=== PATIENT | female | born 1950 | race Caucasian/White ===

== ENCOUNTER 2020-10-24 08:03 | Day surgery (SDC) | payer MEDICARE, MEDICAID ==
[~2020-10-24] VITALS: Ht 167.6 cm; Wt 46.8 kg
[2020-10-24 08:29] LABS: ANION GAP 17.8 mmol/L (8-16); CALCIUM 8.8 mg/dL (8.5-10.1); CARBON DIOXIDE 20.2 mmol/L (21.0-32.0); CREATININE - SERUM 4.5 mg/dL (0.6-1.3)
[2020-10-24 08:41] LABS: BASOPHILS 0.5 % (0-2); EOSINOPHILS 5.7 % (0-7); HEMATOCRIT 30.9 % (36.0-48.0); HEMOGLOBIN 9.7 g/dL (12-16); IMMATURE GRANULOCYTES 0.2 % (0-5); LYMPHOCYTE ABS# 1.76 10x3/uL (1.18-3.74); LYMPHOCYTES 26.5 % (15-50); MCH 28.1 pg (26.0-34.0); MCHC 31.4 g/dL (31.0-37.0); MCV 89.6 fL (80.0-100.0); MEAN PLATELET VOLUME 9.5 fL (7.4-10.4); MONOCYTES 6.3 % (2-11); NEUTROPHIL ABS# 4.05 10x3/uL (1.56-6.13); NEUTROPHILS 60.8 % (40-80); PLATELET COUNT 164 10x3/uL (130-400); RBC 3.45 10x6/uL (4.00-5.40); RDW 16.4 % (11.5-14.5); WBC 6.7 10x3/uL (4.8-10.8)
[2020-10-24 09:00] LABS: INR 1.03 (0.85-1.17); PROTIME 12.5 SECONDS (11.6-15.0)
[2020-10-24] MEDS ORDERED: PLAVIX75 MG PO (11:59)
[2020-10-24] MEDS ORDERED: LISINOPRIL20 MG PO (12:00)
[2020-10-24] MEDS ORDERED: LOPRESSOR25 MG PO (12:00)
[2020-10-24] MEDS ORDERED: SODIUM BICARBO650 MG PO (12:02)
[2020-10-24] MEDS ORDERED: CRESTOR40 MG PO (12:02)
[2020-10-24] MEDS ORDERED: NORVASC10 MG PO (12:03)
[2020-10-24] MEDS ORDERED: VITAMIN D21250 MC1 PO (12:03)
[2020-10-24] MEDS ORDERED: CLONIDINE HCL0.1 MG PO (12:03)
[2020-10-24] MEDS ORDERED: ROCALTROL0.25 MCG PO (12:03)
[2020-10-24] MEDS ORDERED: MIRAPEX0.125 MG PO (12:04)
[2020-10-24] MEDS ORDERED: EFFEXOR XR37.5 MG PO (12:04)
[2020-10-24] MEDS ORDERED: REMERON15 MG PO (12:05)
[2020-10-24] MEDS ORDERED: BAYER CHEWABLE81 MG PO (12:05)
[2020-10-24 12:12] VITALS: BP 150/71; Ht 167.6 cm; Wt 46.8 kg
--- NOTE | 2020-10-24 16:56 | NUR ---
DC INSTRUCTIONS GIVEN TO PT. STATES UNDERSTANDING. DC'D IV CATH FULLY INTACT. PT LEFT UNIT VIA WC AT 9046
--- NOTE | 2020-11-02 10:01 | OP ---
PATIENT NAME: THAIS MOREIRA MEDICAL RECORD: [id number] :48 LOCATION:[facility] ADMISSION DATE: SURGEON: OLIVIA SANDERSON MD DATE OF OPERATION: 10/24/2020 REFERRED BY: Dr. Thomson. PREOPERATIVE DIAGNOSIS: CKD V. POSTOPERATIVE DIAGNOSIS: CKD V. OPERATION PERFORMED: Creation of a Chhaya-type right brachial artery to basilic vein AV fistula in anticipation of eventual revision to make a translocated basilic vein fistula. SURGEON: Olivia Sanderson MD. ANESTHESIA: Regional nerve block and MAC per SEASONER HAND. PREOPERATIVE NOTE: Ms. Moreira is a 70-year-old white female patient with stage V chronic kidney disease and has been referred to me for dialysis access. She is not yet requiring dialysis and I believe we can create a fistula. DESCRIPTION OF PROCEDURE: The patient was placed on the operating table in supine position under mild intravenous sedation and a regional nerve block. The right arm was abducted and prepped and draped in a sterile manner. The arm was treated with an application of nitroglycerin ointment and a Rossy drain was used as a proximal venous tourniquet. I examined the arm with duplex ultrasound and noted that there was a dominant basilic vein of drainage pattern and that the patient has a very acceptable basilic vein and median basilic vein for a brachiobasilic fistula. A transverse incision was made in the median cubital basilic vein, was mobilized and the brachial artery exposed and mobilized. The artery was controlled with Silastic loops as needed. The vein was ligated distally, divided and bevelled and flushed with heparinized saline and hydrostatically distended and prepared for anastomosis. The artery was occluded with the Silastic loops and then arteriotomy about 5 mm was created with an 11 blade scalpel and micro Bryson scissors. The artery was then flushed proximally and distally with heparinized saline. The artery was noted to be normal and that there was no significant atherosclerotic plaque or calcification present. The intima was thickened. The artery was flushed with heparinized saline and then the anastomosis performed in the vein to side of artery with running 7-0 Prolene. When completed and the occluding loops and the clamps were released, excellent flow developed immediately in the new Chhaya fistula. This was demonstrated with palpable thrill and pulsation and continuous pulsatile Doppler flow. There was preservation of flow in the distal brachial artery and then the radial and ulnar arteries at the wrist. I thought the vein was at this point still a little too small to be assured of success with translocation at this point and so we will leave this fistula to mature for a few weeks or even a month or so and before returning her to the operating room to revise it and turn it into a translocated basilic vein fistula. The wound was irrigated with saline and closed with interrupted inverted 3-0 Vicryl and running intracuticular Stratafix and Dermabond glue. It OPERATIVE REPORT [id number] THAIS MOREIRA was dressed with Maxorb AG, Tegaderm, and Cavilon skin prep. The patient was then awakened from her sedation and returned to the outpatient department in stable condition. Blood loss during the procedure was insignificant and replaced. Sponges, instruments and needles were accounted for. No drain was used and no surgical specimen submitted for histopathology. The patient will go home today and return to see me in my office in approximately 2 weeks. She is to leave the operative dressing intact and keep the site dry. Otherwise, she can resume activities as tolerated. She is to continue her same medications and renal diet and she is to resume her same dose of Plavix in approximately 48 hours. In the future, she will need to be returned to the operating room for revision of the fistula to a translocated basilic vein AV fistula. At that time, she will again need to be off of Plavix. TRANSINT:[id number] Voice Confirmation ID: [id number] DOCUMENT ID: [id number] OLIVIA SANDERSON MD at 1001 CC: AIDA ROCHE MD [id number] DICTATION DATE: 11/01/20 1538 ELEVATED WORK PLATFORM OPERATOR: 11/02/20 0048 [facility] 10/24/20 [facility] [address] [place] [address]
== END 2020-10-24 16:53 | disposition home or self-care (01) ==
LOC: D.OPS 08:03
PROVIDERS: ATTEND Surgery
DX: N18.5 Chronic kidney disease, stage 5 (principal); I51.9 Heart disease, unspecified; I10 Essential (primary) hypertension; E07.9 Disorder of thyroid, unspecified; J44.9 Chronic obstructive pulmonary disease, unspecified

== ENCOUNTER 2020-11-10 09:21 | Inpatient (IN) | payer MEDICARE, MEDICAID ==
[~2020-11-10] VITALS: Ht 167.6 cm; Wt 46.5 kg
[2020-11-10] VITALS (7 sets, daily range): BP systolic 134–141; BP diastolic 56–64; BMI 16.6
[~2020-11-10 09:21] MED LIST: BAYER CHEWABLE81 MG PO; CLONIDINE HCL0.1 MG PO; CRESTOR40 MG PO; EFFEXOR XR37.5 MG PO; LISINOPRIL20 MG PO; LOPRESSOR25 MG PO; MIRAPEX0.125 MG PO; NORVASC10 MG PO; PLAVIX75 MG PO; REMERON15 MG PO; ROCALTROL0.25 MCG PO; SODIUM BICARBO650 MG PO; VITAMIN D21250 MC1 PO
--- NOTE | 2020-11-10 10:19 | NUR ---
YARITZA OBTAINED BY MARQUITA IN RT
--- NOTE | 2020-11-10 12:02 | NUR ---
RECEIVED REPORT FROM BARI FROM ED.
--- NOTE | 2020-11-10 13:10 | NUR ---
SALINE LOCK SEEN TO LEFT WRIST WITH NO ORANGE CAP, WILL FLUSH AND SEE IF PATENT. MADDEN CATH IN PLACE UPON ARRIVAL TO FLOOR. PATIENT HAD ECO2 MONITOR FOR NASAL CANNULA ON, CHANGED TO NASAL CANNULA. PLACED ON HEART MONITOR, SHOWS SR, HR 93. BILATERAL ARMS SEEN WITH THIN SKIN, MULTIPLE BRUSISES. WILL CHECK BACK SIDE SHORTLY AND ADD TO ASSEEMENT. DAUGHTER AT BEDSIDE. RESEVRE RIGHT ARM WITH RECENT AVF, + BRUIT AND AND THRILL. RIGHT SIDE OF NECK SEEN WITH HEALING INCISION. SLIGHT OLD BRUISING SEEN TO UPPER CHEST.
[2020-11-10 13:33] LABS: ANION GAP 20.6 mmol/L (8-16); CALCIUM 8.1 mg/dL (8.5-10.1); CARBON DIOXIDE 17.6 mmol/L (21.0-32.0); CREATININE - SERUM 4.7 mg/dL (0.6-1.3); POTASSIUM - SERUM 5.2 mmol/L (3.5-5.1)
[2020-11-10 14:31] LABS: BACTERIA FEW HPF (NONE SEEN); BILIRUBIN NEGATIVE (NEGATIVE); KETONE NEGATIVE (NEGATIVE); NITRITE NEGATIVE (NEGATIVE); SQUAMOUS EPITHELIAL RARE HPF (0-4); UROBILINOGEN NORMAL mg/dL (< 2); WHITE CELLS - URINE 0-5 HPF (0-4)
[2020-11-10 17:34] LABS: ALBUMIN 2.8 g/dL (3.4-5.0); ANION GAP 22.9 mmol/L (8-16); BILIRUBIN - TOTAL 0.17 mg/dL (0.2-1.3); CALCIUM 7.8 mg/dL (8.5-10.1); CARBON DIOXIDE 18.4 mmol/L (21.0-32.0); POTASSIUM - SERUM 5.3 mmol/L (3.5-5.1); PROTEIN - SERUM 5.9 g/dL (6.4-8.2)
--- NOTE | 2020-11-10 19:40 | NUR ---
RECEIVED REPORT, WILL ASSUME CARE OF PT, TRANSFERRED OUT OF 2109, BECAUSE AC NOT WORKING, DENIES ANY NEEDS AT THIS TIME, BED IS LOW, SRX2, CALL LIGHT IN REACH, FAMILY AT BEDSIDE, WILL CONTINUE PLAN OF CARE
--- NOTE | 2020-11-10 20:42 | NUR ---
PT STATES SHE JUST HAD MUCINEX , SHE FEELS THAT IT IS TO CLOSE TOGETHER, ALSO WANTED ATIVAN .25 GIVEN, GAVE SHERBET A SNACK
--- NOTE | 2020-11-10 21:34 | NUR ---
COLLECTED SARS, PER EMPLOYEE BENEFITS MANAGER DIDNT PLACE PT IN ISO, PT IS NOT SYMTOMATIC, THIS TEST WAS ORDER FOR DIALYSIS PLACEMENT
[2020-11-10 22:32] LABS: SARS-CoV-2 ANTIGEN NEGATIVE- SARS-COV-2 (NEGATIVE)
[2020-11-11] VITALS (30 sets, daily range): BP systolic 80–161; BP diastolic 51–98
[2020-11-11 07:17] LABS: BASOPHILS 0 % (0-2); EOSINOPHILS 0 % (0-7); HEMATOCRIT 30.3 % (36.0-48.0); HEMOGLOBIN 9.3 g/dL (12-16); IMMATURE GRANULOCYTES 0.2 % (0-5); LYMPHOCYTE ABS# 0.83 10x3/uL (1.18-3.74); LYMPHOCYTES 6.1 % (15-50); MCH 26.5 pg (26.0-34.0); MCHC 30.7 g/dL (31.0-37.0); MCV 86.3 fL (80.0-100.0); MEAN PLATELET VOLUME 9.7 fL (7.4-10.4); MONOCYTES 2.6 % (2-11); NEUTROPHIL ABS# 12.37 10x3/uL (1.56-6.13); NEUTROPHILS 91.1 % (40-80); PLATELET COUNT 175 10x3/uL (130-400); RBC 3.51 10x6/uL (4.00-5.40); RDW 16.4 % (11.5-14.5); WBC 13.6 10x3/uL (4.8-10.8)
[2020-11-11 07:42] LABS: ANION GAP 22.2 mmol/L (8-16); CALCIUM 7.6 mg/dL (8.5-10.1); CARBON DIOXIDE 17.9 mmol/L (21.0-32.0); CREATININE - SERUM 5.7 mg/dL (0.6-1.3); MAGNESIUM - SERUM 1.8 mg/dL (1.8-2.4); PHOSPHOROUS 6.2 mg/dL (2.5-4.9); POTASSIUM - SERUM 5.1 mmol/L (3.5-5.1)
--- NOTE | 2020-11-11 08:22 | NUR ---
NOTIFIED RANADL GREY STENCILER ABOUT ELEVATED D-DIMER OF 7.71. REGLAN AND PEPCID GIVEN. PT VERY ANXIOUS ABOUT GOING TO SURGERY, STATES THAT SHE FEELS HOT, SHAKY AND HAVING REALLY BAD INDIGESTION. EKG DONE AND SHOWED TO RANDAL GREY. NO NEW ORDERS AT THIS TIME.
--- NOTE | 2020-11-11 09:15 | NUR ---
RECEIVED PT BACK TO ROOM 2112 VIA BED. PT STATING THAT SHE CANNOT BREATH, VERY ANXIOUS. CHECKED O2 AND IT WAS READING IN THE 70'S WITH HR OF 160. GAVE 1MG OF ATIVAN PER ORDER AT THIS TIME. SONDRA WITH RESP AT BEDSIDE TO ASSESS PT. PLACED ON 6L HF. O2 CAME BACK UP TO 94%. PT STILL STATING THAT SHE IS HAVING TROUBLE BREATHING. 02 READING 98%, HR 150. GAVE 40MG OF LASIX ORDERED. RANDAL GREY AMORTIZATION CLERK AT BEDSIDE, NEW ORDER TO GIVE ANOTHER MG OF ATIVAN AND 40MG OF LASIX. AFTER THE 2MG OF ATIVAN GIVEN PT CALMED DOWN A LITTLE. DAUGHTER AT BEDSIDE. DR. ANDERS CAME IN TO ASSESS PT, PT RESTING COMFORTABLY, TELE SHOWING ST 120, O2 99% 6L HF. PT TO BE MOVED TO ICU. EVERYTHING EXPLAINED TO DAUGHTER, CALL LIGHT IN REACH.
--- NOTE | 2020-11-11 10:34 | NUR ---
PT TO OR.
--- NOTE | 2020-11-11 10:59 | NUR ---
REPORT CALLED TO TONE HARDWICK.
--- NOTE | 2020-11-11 12:05 | NUR ---
1120 PATIENT RECIEVED FROM THE OR VIA BED.. DR ERIC ANESTHESIA WITH PATIENT.. O2 ON AT 100% NON REBREATHER... PIV X3 LEFT FOREARM SALINE LOCKED AT THIS TIME.. PATIENT IS MOVING TOES INDENDANTLY.. ST RYTHM ON THE MONITOR.. BP IS LOW.. DR JANNIE FRANZ SPOKE WITH RANDAL DIAZ RENAL... DR GUTIREREZ CALLED TO INFORM HIM OF PATIENT PLACEMENT... SEE FLOW SHEET FOR VS AND ASSESMENT FINDINGS.. 1145 DR ERIC WITH PATIENTS FAMILY AT THE BEDSIDE.. [address] ERIC GONE [address]5 DR VALDERRAMA IN TO SEE PATIENT UPDATE IS GIVEN AND LEVOPHED DRIP ORDERED TO KEEP BP SYSTOLIC >100 SO THAT PATIENT CAN BE DIALYIZED.. 1200 LEVO PHED HUNG AT THIS TIME AT 1 MCG/MIN
--- NOTE | 2020-11-11 14:25 | NUR ---
1400 DIALYSIS AT BEDSIDE.. PT REMAINS ON LEVOPHED... 1425 DIALYSIS CONTINUES ECHO BEING DONE AT BEDSIDE..
[2020-11-12] VITALS (12 sets, daily range): BP systolic 112–160; BP diastolic 63–88
[2020-11-12 04:30] LABS: BASOPHILS 0 % (0-2); EOSINOPHILS 0 % (0-7); HEMATOCRIT 27.1 % (36.0-48.0); HEMOGLOBIN 8.3 g/dL (12-16); IMMATURE GRANULOCYTES 0.2 % (0-5); LYMPHOCYTE ABS# 0.84 10x3/uL (1.18-3.74); LYMPHOCYTES 7.9 % (15-50); MCH 26.3 pg (26.0-34.0); MCHC 30.6 g/dL (31.0-37.0); MEAN PLATELET VOLUME 9.2 fL (7.4-10.4); MONOCYTES 2.6 % (2-11); NEUTROPHIL ABS# 9.54 10x3/uL (1.56-6.13); NEUTROPHILS 89.3 % (40-80); PLATELET COUNT 147 10x3/uL (130-400); RBC 3.15 10x6/uL (4.00-5.40); RDW 16.6 % (11.5-14.5); WBC 10.7 10x3/uL (4.8-10.8)
[2020-11-12 05:09] LABS: ANION GAP 17.6 mmol/L (8-16); BILIRUBIN - TOTAL 0.29 mg/dL (0.2-1.3); CALCIUM 7.8 mg/dL (8.5-10.1); CREATININE - SERUM 4.3 mg/dL (0.6-1.3); MAGNESIUM - SERUM 1.9 mg/dL (1.8-2.4); PHOSPHOROUS 6.7 mg/dL (2.5-4.9); POTASSIUM - SERUM 4.4 mmol/L (3.5-5.1)
[2020-11-12 05:13] LABS: CARBON DIOXIDE 24.8 mmol/L (21.0-32.0)
[2020-11-13 01:26] VITALS: BP 148/100
[2020-11-13 05:25] VITALS: BP 140/61
[2020-11-13 07:03] LABS: BASOPHILS 0 % (0-2); EOSINOPHILS 0 % (0-7); HEMATOCRIT 31.1 % (36.0-48.0); HEMOGLOBIN 9.8 g/dL (12-16); IMMATURE GRANULOCYTES 0.3 % (0-5); LYMPHOCYTE ABS# 0.73 10x3/uL (1.18-3.74); LYMPHOCYTES 7.2 % (15-50); MCH 27.1 pg (26.0-34.0); MCHC 31.5 g/dL (31.0-37.0); MCV 85.9 fL (80.0-100.0); NEUTROPHIL ABS# 9.02 10x3/uL (1.56-6.13); NEUTROPHILS 88.5 % (40-80); RBC 3.62 10x6/uL (4.00-5.40); RDW 16.7 % (11.5-14.5); WBC 10.2 10x3/uL (4.8-10.8)
[2020-11-13 07:04] LABS: PLATELET COUNT 177 10x3/uL (130-400)
[2020-11-13 07:19] LABS: ALBUMIN 3.6 g/dL (3.4-5.0); ANION GAP 20.4 mmol/L (8-16); BILIRUBIN - TOTAL 0.65 mg/dL (0.2-1.3); CALCIUM 8.1 mg/dL (8.5-10.1); CARBON DIOXIDE 20.9 mmol/L (21.0-32.0); POTASSIUM - SERUM 4.3 mmol/L (3.5-5.1)
[2020-11-13 07:21] LABS: CREATININE - SERUM 6.1 mg/dL (0.6-1.3)
--- NOTE | 2020-11-13 10:00 | NUR ---
PATIENT TAKEN TO DIALYSIS
[2020-11-13 10:10] VITALS: BP 216/106
[2020-11-13 13:39] VITALS: Ht 167.6 cm; Wt 46.5 kg
[2020-11-13 14:22] VITALS: BP 199/81
--- NOTE | 2020-11-13 16:07 | NUR ---
OT NOTE: EVALUATED PT THIS DATE.. PT WAS INDEP WITH MOBILITY INCLUDING TRANSFERS, BED MOB, AND IN ROOM AMBULATION. SHE WAS INDEP WITH ADLS.. NO OT RECOMMENDED AT THIS TIME. CHRISTOPHER TERAN, OTR/L EVAL: 132
[2020-11-13 21:00] VITALS: BP 158/71
[2020-11-14] VITALS: BP 156/69
[2020-11-14 04:00] VITALS: BP 166/72
--- NOTE | 2020-11-14 06:35 | NUR ---
PT HR-38 UPON ASSESMENT PT AYSYMPTOMATIC. MELYSSA PAGED ORDERS FOR CARDIAC CONSULT PUT IN. PT STATES THAT HE WAS UNAWARE OF LOW HEARTRATE. EKG IN CHART. OTHERWISE STABLE VITALS. WILL CONTINUE TO MONITOR.
[2020-11-14 07:00] LABS: BASOPHILS 0.2 % (0-2); EOSINOPHILS 0 % (0-7); HEMATOCRIT 28.7 % (36.0-48.0); HEMOGLOBIN 9.6 g/dL (12-16); LYMPHOCYTES 14.8 % (15-50); MCH 28.4 pg (26.0-34.0); MCHC 33.4 g/dL (31.0-37.0); MEAN PLATELET VOLUME 7.8 fL (7.4-10.4); MONOCYTES 7.7 % (2-11); NEUTROPHILS 77.3 % (40-80); PLATELET COUNT 174 10x3/uL (130-400); RBC 3.38 10x6/uL (4.00-5.40); RDW 17.1 % (11.5-14.5); WBC 7.7 10x3/uL (4.8-10.8)
[2020-11-14 07:27] LABS: ALBUMIN 3.2 g/dL (3.4-5.0); ANION GAP 18.8 mmol/L (8-16); BILIRUBIN - TOTAL 0.58 mg/dL (0.2-1.3); CALCIUM 8.2 mg/dL (8.5-10.1); CARBON DIOXIDE 25.4 mmol/L (21.0-32.0); CREATININE - SERUM 3.4 mg/dL (0.6-1.3); POTASSIUM - SERUM 4.2 mmol/L (3.5-5.1); PROTEIN - SERUM 5.8 g/dL (6.4-8.2)
[2020-11-14 08:40] VITALS: BP 175/74
[2020-11-14 10:12] LABS: HEP B CORE AB TOTAL Negative (Negative)
[2020-11-14 11:12] LABS: IMMUNOGLOBULIN E 21 IU/mL (6-495)
[2020-11-14 11:37] VITALS: BP 176/65
[2020-11-14 15:51] VITALS: BP 164/65
--- NOTE | 2020-11-14 16:02 | OP ---
PATIENT NAME: THAIS MOREIRA MEDICAL RECORD: [id number] :49 LOCATION:D.M2 D.2129 ADMISSION DATE:11/10/20 SURGEON: OLIVIA SANDERSON MD DATE OF OPERATION: 11/13/2020 REFERRED BY: Angelika Carbajal DO PREOPERATIVE DIAGNOSES: 1. Lxfcm-av-hwskdbo renal failure. 2. Acute and chronic respiratory failure. 3. Coronary artery disease involving choctaw coronary arteries and peripheral vascular disease. POSTOPERATIVE DIAGNOSES: 1. Cunhn-ve-axfcgfz renal failure. 2. Acute and chronic respiratory failure. 3. Coronary artery disease involving choctaw coronary arteries and peripheral vascular disease. OPERATION PERFORMED: Insertion of a right common femoral vein 27 cm, Mahurkar tunneled dialysis catheter with ultrasound guidance and fluoroscopy. SURGEON: Olivia Sanderson MD ANESTHESIA: TIVA and/or MAC per Dr. Velasquez and local 1% lidocaine without epinephrine. PREOPERATIVE NOTE: Ms. Moreira is a 70-year-old white female patient with chronic kidney disease, who only 2 weeks ago had an AV fistula created, which will need revision to create a brachial artery to translocate basilic vein AV fistula. However, she has gone into acute on chronic renal failure as well as respiratory failure. She needs to dialyze now and is brought to the operating room for insertion of a dialysis catheter. The patient is dyspneic and at this time, I do not believe a good candidate for an internal jugular catheter insertion, so I plan to implant this catheter in her femoral vein. With the patient under sedation and monitoring that she was in supine position, prepped and draped in a sterile manner. The right common femoral vein was located with ultrasound. It was fully compressible and normal sonographically. A small incision was made and a micropuncture needle was inserted under continuous ultrasound guidance into the common femoral vein. A guidewire was inserted and advanced under fluoroscopy and subsequently a catheter wire exchange was performed with a 0.035 J wire inserted up into the inferior vena cava again under fluoroscopy. Dilators were passed and lastly a dilator peel-away sheath. I chose a 27 cm Mahurkar tunneled dialysis catheter. This was inserted through a small incision distally on the anterior thigh and brought through a subcutaneous tunnel up to the primary incision where it was then inserted through the peel-away sheath, and then under fluoroscopy, it was positioned well in the distal inferior vena cava. There were no kinks or apparent complications under fluoroscopy. The catheter lumens were then both accessed and aspirated, free return of blood confirmed. They were then flushed with saline and then heparin locked, clamped and capped. The incision was closed with interrupted inverted 3-0 Vicryl and Dermabond glue. The catheter OPERATIVE REPORT [id number] THAIS MOREIRA was sutured to the skin near the entry site with 2-0 Prolene and that site dressed with a Biopatch and Cavilon skin prep and a standard CVL dressing. The patient was at that point awakened and in stable condition taken back to the ICU. TRANSINT:[id number] Voice Confirmation ID: [id number] DOCUMENT ID: [id number] OLIVIA SANDERSON MD at 1602 CC: ANGELIKA CARBAJAL DO [id number] DICTATION DATE: 11/13/[address] FREIGHT: 11/13/20 2333 ADM IN [facility] [address] [place] [address]
--- NOTE | 2020-11-14 16:57 | MORECARE ---
CASE MANAGEMENT DISCHARGE SUMMARY PATIENT: THAIS MOREIRA UNIT: [id number] ADM DATE: 11/10/20 AGE: 70 : 49 SEX: F ROOM/BED: D.2509 AUTHOR: ROBERT,DOC PHYSICIAN: REFERRING PHYSICIAN: NOBLE MATA MD DATE OF SERVICE: 11/14/20 Case Management Discharge Planning Summary COMMENTS ENTERED DATE: 11/14/20 16:54 CT COMMENT TYPE: Discharge Planning REVIEWER: Shantel Huynh CM spoke with Deedee about setting up an OP dialysis chair in [place]. Deedee states she is working on this. DCP REVIEW SUMMARY ANTICIPATED D/C DATE: EXPECTED LOS : CASE STATUS: DCP Initiated INITIAL REVIEW: 11/14/2020 INITIAL REVIEWER: Shantel Huynh FINAL DISCHARGE DISPOSITION: : FINAL REVIEWER: FINAL REVIEW DATE: DCP Focus Questions & Answers QUESTION: ANSWER : PATIENT: THAIS MOREIRA ENCOUNTER: [id number] MEDICAL RECORD#: [id number] ADMISSION DATE: 11/10/2020 DISCHARGE DATE: ATTENDING MD: NOBLE LOZADA : AGE: 70 MARITAL STATUS: D DC PLAN ID: [id number] FACILITY: [facility] PRINTED ON: 11/14/20 16:57 CT All edits/amendments must be made on the electronic document DICTATION DATE: 11/14/201656 BRAZER REPAIR AND SALVAGE: MIRANDA 11/14/201656 RPT#: [id number] DC DATE: STATUS: ADM IN [facility] [address] [place] [address] END OF REPORT
--- NOTE | 2020-11-14 20:49 | MORECARE ---
CASE MANAGEMENT DISCHARGE SUMMARY PATIENT: THAIS MOREIRA UNIT: [id number] ADM DATE: 11/10/20 AGE: 70 : 49 SEX: F ROOM/BED: D.8213 AUTHOR: ROBERT,DOC PHYSICIAN: REFERRING PHYSICIAN: NOBLE MATA MD DATE OF SERVICE: 11/14/20 Case Management Discharge Planning Summary COMMENTS ENTERED DATE: 11/14/20 16:54 CT COMMENT TYPE: Discharge Planning REVIEWER: Shantel Huynh CM spoke with Deedee about setting up an OP dialysis chair in [place]. Deedee states she is working on this. DCP REVIEW SUMMARY ANTICIPATED D/C DATE: EXPECTED LOS : CASE STATUS: DCP Initiated INITIAL REVIEW: 11/14/2020 INITIAL REVIEWER: Shantel Huynh FINAL DISCHARGE DISPOSITION: : FINAL REVIEWER: FINAL REVIEW DATE: DCP Focus Questions & Answers QUESTION: ANSWER : PATIENT: THAIS MOREIRA ENCOUNTER: [id number] MEDICAL RECORD#: [id number] ADMISSION DATE: 11/10/2020 DISCHARGE DATE: ATTENDING MD: NOBLE LOZADA : AGE: 70 MARITAL STATUS: D DC PLAN ID: [id number] FACILITY: [facility] PRINTED ON: 11/14/20 20:49 CT All edits/amendments must be made on the electronic document DICTATION DATE: 11/14/202048 CLEANING CREW MEMBER: MIRANDA 11/14/202048 RPT#: [id number] DC DATE: STATUS: ADM IN [facility] [address] [place] [address] END OF REPORT
[2020-11-14 21:00] VITALS: BP 174/72
--- NOTE | 2020-11-14 23:08 | NUR ---
PT'S IV IN LFA INFILTRATED. IV CATHETER INTACT. NO SWELLING NOTED. THIS NURSE PUT A 22G IV IN PT'S MCKAY X1 STICK. IV IS SALINE LOCKED AT THIS TIME. WILL CONTINUE TO MONITOR.
[2020-11-15] VITALS: BP 119/56
--- NOTE | 2020-11-15 00:12 | NUR ---
I have reviewed this patient and I concur with the Shift Assessment completed by the Licensed Practical Nurse today this shift.
[2020-11-15 04:00] VITALS: BP 153/56
[2020-11-15 06:55] LABS: BASOPHILS 0.5 % (0-2); EOSINOPHILS 0.2 % (0-7); HEMOGLOBIN 9.3 g/dL (12-16); LYMPHOCYTES 14.2 % (15-50); MCHC 31.9 g/dL (31.0-37.0); MCV 84.5 fL (80.0-100.0); MEAN PLATELET VOLUME 7.7 fL (7.4-10.4); MONOCYTES 7.1 % (2-11); PLATELET COUNT 182 10x3/uL (130-400); RBC 3.44 10x6/uL (4.00-5.40); RDW 16.9 % (11.5-14.5)
[2020-11-15 07:00] LABS: WBC 13.1 10x3/uL (4.8-10.8)
[2020-11-15 07:06] LABS: ALBUMIN 2.9 g/dL (3.4-5.0); ANION GAP 16.3 mmol/L (8-16); BILIRUBIN - TOTAL 0.72 mg/dL (0.2-1.3); CALCIUM 7.8 mg/dL (8.5-10.1); CARBON DIOXIDE 25.7 mmol/L (21.0-32.0); PROTEIN - SERUM 5.7 g/dL (6.4-8.2)
[2020-11-15 07:07] LABS: CREATININE - SERUM 5.1 mg/dL (0.6-1.3)
[2020-11-15 07:38] VITALS: BP 197/74
[2020-11-15 16:08] VITALS: BP 141/52
--- NOTE | 2020-11-15 16:34 | MORECARE ---
CASE MANAGEMENT DISCHARGE SUMMARY PATIENT: THAIS MOREIRA UNIT: [id number] ADM DATE: 11/10/20 AGE: 70 : 49 SEX: F ROOM/BED: D.3345 AUTHOR: ROBERT,DOC PHYSICIAN: REFERRING PHYSICIAN: NOBLE MATA MD DATE OF SERVICE: 11/15/20 Case Management Discharge Planning Summary COMMENTS ENTERED DATE: 11/14/20 16:54 CT COMMENT TYPE: Discharge Planning REVIEWER: Shantel Huynh CM spoke with Deedee about setting up an OP dialysis chair in [place]. Deedee states she is working on this. DCP REVIEW SUMMARY ANTICIPATED D/C DATE: EXPECTED LOS : CASE STATUS: DCP Initiated INITIAL REVIEW: 11/14/2020 INITIAL REVIEWER: Shantel Huynh FINAL DISCHARGE DISPOSITION: : FINAL REVIEWER: FINAL REVIEW DATE: DCP Focus Questions & Answers QUESTION: ANSWER : PATIENT: THAIS MOREIRA ENCOUNTER: [id number] MEDICAL RECORD#: [id number] ADMISSION DATE: 11/10/2020 DISCHARGE DATE: ATTENDING MD: NOBLE LOZADA : AGE: 70 MARITAL STATUS: D DC PLAN ID: [id number] FACILITY: [facility] PRINTED ON: 11/15/20 16:34 CT All edits/amendments must be made on the electronic document DICTATION DATE: 11/15/201633 BUCKRAM SEWER: MIRANDA 11/15/20 163 RPT#: [id number] DC DATE: STATUS: ADM IN [facility] [address] [place] [address] END OF REPORT
--- NOTE | 2020-11-15 16:46 | MORECARE ---
CASE MANAGEMENT DISCHARGE SUMMARY PATIENT: THAIS MOREIRA UNIT: [id number] ADM DATE: 11/10/20 AGE: 70 : 49 SEX: F ROOM/BED: D.4288 AUTHOR: RENÉE JONES PHYSICIAN: REFERRING PHYSICIAN: NOBLE MATA MD DATE OF SERVICE: 11/15/20 Case Management Discharge Planning Summary COMMENTS ENTERED DATE: 11/14/20 16:54 CT COMMENT TYPE: Discharge Planning REVIEWER: Shantel Huynh CM spoke with Deedee about setting up an OP dialysis chair in [place]. Deedee states she is working on this. DCP REVIEW SUMMARY ANTICIPATED D/C DATE: EXPECTED LOS : CASE STATUS: DCP Initiated INITIAL REVIEW: 11/14/2020 INITIAL REVIEWER: Shantel Huynh FINAL DISCHARGE DISPOSITION: : FINAL REVIEWER: FINAL REVIEW DATE: DCP Focus Questions & Answers DCP Screen QUESTION: ANSWER High Risk Factors: : Poor health literacy DCP Evaluation QUESTION: ANSWER Patient's ability to cope with chronic illness : d. No chronic illness Patient gives permission to discuss discharge plans with: (name, relationship and number) : JAYLA MOREIRA (SON) Patient and/or caregiver agree upon recommended discharge plan? : Yes Family / Caregiver's ability to cope with chronic illness: : a. Adequate (ability to meet patient's medical needs, ensures patient attends medical appts.) Patient's current cognitive status: : *Oriented to person, place, situation, time and present Family / Caregiver's ability to cope with chronic illness: : a. Adequate (ability to meet patient's medical needs, ensures patient attends medical appts.) Physical Status: : Independent with ADL's Does the patient have the ability to pay for or attain post discharge needs / services? : Yes Functional screen assessment: : Can meet basic needs but may require referral for resources Living Arrangements: : Home with others Equipment needed for post hospitalization: : None Is there a likelihood that the patient will require additional services to return to the preadmission environment? : No Living arrangements comments: : LIVES WITH DAUGHTER Baseline cognitive status: : *Oriented to person, place, situation, time and present Results of this evaluation have been discussed with: : Patient Patient with capacity for self-care or can be cared for in same environment as prior to hospitalization? : Yes Physical environment modification needed / anticipated for discharge: : No Medication Management: : Patient states can afford medications Medication Management: : Patient states can read and understand medication labels Medication Management: : Patient states they do have transportation to picker tender helper medications Planned post hospital services available for patient? : Yes Pharmacy name(s): : [facility] Planned post hospital services covered by insurance plan? : Yes Does Patient have transportation to get home and to follow-up medical appointments when discharged from the hospital? : Yes Would patient like to participate in any Care Coordination programs (if applicable): : Not applicable Does the patient have electricity at home? : Yes Does the patient have running water in their house? : Yes Equipment in use: : None Mental health screen: : No mental health history Psychosocial status: : Independent adult (65+) Abuse/Neglect: : None Resources / Services in place: : None DCP Re-evaluation QUESTION: ANSWER Would patient like to participate in any Care Coordination programs (if applicable): : Not applicable PATIENT: THAIS MOREIRA ENCOUNTER: [id number] MEDICAL RECORD#: [id number] ADMISSION DATE: 11/10/2020 DISCHARGE DATE: ATTENDING MD: NOBLE LOZADA : AGE: 70 MARITAL STATUS: D DC PLAN ID: [id number] FACILITY: [facility] PRINTED ON: 11/15/20 16:46 CT All edits/amendments must be made on the electronic document DICTATION DATE: 11/15/201644 HOSPITALITY SPECIALIST: MIRANDA 11/15/201644 RPT#: [id number] DC DATE: STATUS: ADM IN [facility] [address] [place] [address] END OF REPORT
--- NOTE | 2020-11-15 16:58 | MORECARE ---
CASE MANAGEMENT DISCHARGE SUMMARY PATIENT: THAIS MOREIRA UNIT: [id number] ADM DATE: 11/10/20 AGE: 70 : 49 SEX: F ROOM/BED: D.9980 AUTHOR: ROBERT,DOC PHYSICIAN: REFERRING PHYSICIAN: NOBLE MATA MD DATE OF SERVICE: 11/15/20 Case Management Discharge Planning Summary COMMENTS ENTERED DATE: 11/15/20 16:43 CT COMMENT TYPE: Discharge Planning REVIEWER: Liz Wadsworth CM MET WITH PATIENT TO COMPLETE DCP AND OFFER AVAILABILITY OF ADDITIONAL SERVICES. PT STATES THAT SHE LIVES INDEPENDENTLY WITH HER DAUGHTER UNA AT ADDRESS PROVIDED. PT STATES HER HOME ENVIROMENT IS SAFE WITH RUNNING WATER AND ELECTRICITY. SON IS PRESENT AT TIME OF ASSESSMENT AND VERIFIES THAT PATIENT HAS TRANSPRTATION TO DR VISITS AND CAN AFFORD MEDS. CM DISCUSSED HOME HEALTH, REHAB SERVICES AND DME EQUIPMENT NEEDS AND PATIENT DENIES ALL. DISCUSSED DIALYSIS APPOINTMENT WITH AND DISTRIBUTED EDUCATION BOOKLET, AND APPOINTMENT INFORMATION. PATIENT AND SON VERBALIZED UNDERSTANDING OF DATE, LOCATION, AND TIME PATIENT IS SCHEDULED TO ARRIVE FOR DIALYSIS ON FRIDAY. IMM SERVED SIGNED AND COPY PLACED IN THE CHART. ENTERED DATE: 11/14/20 16:54 CT COMMENT TYPE: Discharge Planning REVIEWER: Shantel Huynh CM spoke with Deedee about setting up an OP dialysis chair in [place]. Deedee states she is working on this. DCP REVIEW SUMMARY ANTICIPATED D/C DATE: EXPECTED LOS : CASE STATUS: DCP Initiated INITIAL REVIEW: 11/14/2020 INITIAL REVIEWER: Shantel Huynh FINAL DISCHARGE DISPOSITION: : FINAL REVIEWER: FINAL REVIEW DATE: DCP Focus Questions & Answers DCP Screen QUESTION: ANSWER High Risk Factors: : Poor health literacy DCP Evaluation QUESTION: ANSWER Patient's ability to cope with chronic illness : d. No chronic illness Patient gives permission to discuss discharge plans with: (name, relationship and number) : JAYLA MOREIRA (SON) Patient and/or caregiver agree upon recommended discharge plan? : Yes Family / Caregiver's ability to cope with chronic illness: : a. Adequate (ability to meet patient's medical needs, ensures patient attends medical appts.) Patient's current cognitive status: : *Oriented to person, place, situation, time and present Family / Caregiver's ability to cope with chronic illness: : a. Adequate (ability to meet patient's medical needs, ensures patient attends medical appts.) Physical Status: : Independent with ADL's Does the patient have the ability to pay for or attain post discharge needs / services? : Yes Functional screen assessment: : Can meet basic needs but may require referral for resources Living Arrangements: : Home with others Equipment needed for post hospitalization: : None Is there a likelihood that the patient will require additional services to return to the preadmission environment? : No Living arrangements comments: : LIVES WITH DAUGHTER Baseline cognitive status: : *Oriented to person, place, situation, time and present Results of this evaluation have been discussed with: : Patient Patient with capacity for self-care or can be cared for in same environment as prior to hospitalization? : Yes Physical environment modification needed / anticipated for discharge: : No Medication Management: : Patient states can afford medications Medication Management: : Patient states can read and understand medication labels Medication Management: : Patient states they do have transportation to parts picker medications Planned post hospital services available for patient? : Yes Pharmacy name(s): : [facility] Planned post hospital services covered by insurance plan? : Yes Does Patient have transportation to get home and to follow-up medical appointments when discharged from the hospital? : Yes Would patient like to participate in any Care Coordination programs (if applicable): : Not applicable Does the patient have electricity at home? : Yes Does the patient have running water in their house? : Yes Equipment in use: : None Mental health screen: : No mental health history Psychosocial status: : Independent adult (65+) Abuse/Neglect: : None Resources / Services in place: : None DCP Re-evaluation QUESTION: ANSWER Would patient like to participate in any Care Coordination programs (if applicable): : Not applicable PATIENT: THAIS MOREIRA ENCOUNTER: [id number] MEDICAL RECORD#: [id number] ADMISSION DATE: 11/10/2020 DISCHARGE DATE: ATTENDING MD: NOBLE LOZADA : AGE: 70 MARITAL STATUS: D DC PLAN ID: [id number] FACILITY: [facility] PRINTED ON: 11/15/20 16:58 CT All edits/amendments must be made on the electronic document DICTATION DATE: 11/15/201657 BIOLOGICAL PHOTOGRAPHER: MIRANDA 11/15/201657 RPT#: [id number] DC DATE: STATUS: ADM IN [facility] [address] [place] [address] END OF REPORT
--- NOTE | 2020-11-15 18:54 | NUR ---
DIALYSIS TREATMENT TODAY. REMOVED 2 LITERS. PATIENT HAD MILD HYPOTENSION IN LAST 10 MINUTES OF TREATMENT. ENDED TREATMENT 8 MINUTES EARLY TO AVOID FURTHER DROPS IN PRESSURE AND PATIENT TOLERATED WELL. ENDING BLOOD PRESSURE 104/67. REPORT GIVEN TO REILLY FRIAS RN. NOTE: HAD TO REDUCE BFR TO FINISH TREATMENT DUE TO ELEVATED PRESSURES IN CATH.
[2020-11-15 21:00] VITALS: BP 142/52
[2020-11-16] VITALS: BP 144/68
[2020-11-16 04:00] VITALS: BP 143/61
--- NOTE | 2020-11-16 04:08 | NUR ---
I have reviewed this patient and I concur with the Shift Assessment completed by the Licensed Practical Nurse today this shift.
--- NOTE | 2020-11-16 07:00 | NUR ---
REPORT RECEIVED. PATIENT IS AAOX4, SITTING UP IN BED. ER NURSE AT BEDSIDE ATTEMPTING TO OBTAIN NEW IV. NO S/S OF DISTRESS OBSERVED, RR EVEN AND UNLABORED ON ROOM AIR. RT THIGH HEMOSPLIT, DRSG C/D/I. PATIENT PLACED ON BEDPAN PER REQUEST. NO FURTHER NEEDS EXPRESSED. SON AT BEDSIDE. CL IN REACH, BED LOCKED AND LOWERED. WILL CPOC.
--- NOTE | 2020-11-16 08:02 | NUR ---
DR. PEDRO AT BEDSIDE, STATES HE'S OK FOR PATIENT TO BE DC'D FROM HIS STANDPOINT AND TO MAKE SURE DIALYSIS IS SET UP PROPERLY.
[2020-11-16 08:12] LABS: BASOPHILS 0.8 % (0-2); EOSINOPHILS 0.7 % (0-7); HEMATOCRIT 31.2 % (36.0-48.0); LYMPHOCYTES 17.5 % (15-50); MCHC 32.1 g/dL (31.0-37.0); MCV 84.3 fL (80.0-100.0); MEAN PLATELET VOLUME 7.5 fL (7.4-10.4); MONOCYTES 7.2 % (2-11); NEUTROPHILS 73.8 % (40-80); PLATELET COUNT 185 10x3/uL (130-400); RDW 16.9 % (11.5-14.5); WBC 11.4 10x3/uL (4.8-10.8)
[2020-11-16 08:40] VITALS: BP 151/54
[2020-11-16 08:42] LABS: CREATININE - SERUM 4.7 mg/dL (0.6-1.3)
[2020-11-16 08:43] LABS: ALBUMIN 3.2 g/dL (3.4-5.0); ANION GAP 17.8 mmol/L (8-16); BILIRUBIN - TOTAL 0.82 mg/dL (0.2-1.3); CALCIUM 8.3 mg/dL (8.5-10.1); POTASSIUM - SERUM 3.8 mmol/L (3.5-5.1); PROTEIN - SERUM 5.8 g/dL (6.4-8.2)
[2020-11-16 11:40] VITALS: BP 154/43
--- NOTE | 2020-11-16 13:05 | NUR ---
Nutrition Follow-up: Ate ~50% of breakfast this AM. Does not like Nepro. HD yesterday (-2L). Noted plans to d/c today. Diet: Renal ADA, Nepro TID No new wt; last wt: 102.5# (11/13) Labs noted: K+ 3.8, Ca 8.3, Alb 3.2 Meds noted: Nephrovite, Prednisone, Bumex, PhosLo, Calcitriol, Florajen, Protonix -Encourage PO intake and honor food preferences within diet restrictions. -Continue Nepro; encourage intake. -Need new wt. -RD follow-up: 11/21
--- NOTE | 2020-11-16 13:53 | NUR ---
DC PAPERS SIGNED AND COPIES PROVIDED.
--- NOTE | 2020-11-16 19:36 | MORECARE ---
CASE MANAGEMENT DISCHARGE SUMMARY PATIENT: THAIS MOREIRA UNIT: [id number] ADM DATE: 11/10/20 AGE: 70 : 49 SEX: F ROOM/BED: D.0067 AUTHOR: ROBERT,DOC PHYSICIAN: REFERRING PHYSICIAN: NOBLE MATA MD DATE OF SERVICE: 11/16/20 Case Management Discharge Planning Summary COMMENTS ENTERED DATE: 11/15/20 16:43 CT COMMENT TYPE: Discharge Planning REVIEWER: Liz Wadsworth CM MET WITH PATIENT TO COMPLETE DCP AND OFFER AVAILABILITY OF ADDITIONAL SERVICES. PT STATES THAT SHE LIVES INDEPENDENTLY WITH HER DAUGHTER UNA AT ADDRESS PROVIDED. PT STATES HER HOME ENVIROMENT IS SAFE WITH RUNNING WATER AND ELECTRICITY. SON IS PRESENT AT TIME OF ASSESSMENT AND VERIFIES THAT PATIENT HAS TRANSPRTATION TO DR VISITS AND CAN AFFORD MEDS. CM DISCUSSED HOME HEALTH, REHAB SERVICES AND DME EQUIPMENT NEEDS AND PATIENT DENIES ALL. DISCUSSED DIALYSIS APPOINTMENT WITH AND DISTRIBUTED EDUCATION BOOKLET, AND APPOINTMENT INFORMATION. PATIENT AND SON VERBALIZED UNDERSTANDING OF DATE, LOCATION, AND TIME PATIENT IS SCHEDULED TO ARRIVE FOR DIALYSIS ON FRIDAY. IMM SERVED SIGNED AND COPY PLACED IN THE CHART. ENTERED DATE: 11/14/20 16:54 CT COMMENT TYPE: Discharge Planning REVIEWER: Shantel Huynh CM spoke with Deedee about setting up an OP dialysis chair in [place]. Deedee states she is working on this. DCP REVIEW SUMMARY ANTICIPATED D/C DATE: EXPECTED LOS : CASE STATUS: DCP Initiated INITIAL REVIEW: 11/14/2020 INITIAL REVIEWER: Shantel Huynh FINAL DISCHARGE DISPOSITION: : FINAL REVIEWER: FINAL REVIEW DATE: DCP Focus Questions & Answers DCP Screen QUESTION: ANSWER High Risk Factors: : Poor health literacy DCP Evaluation QUESTION: ANSWER Patient's ability to cope with chronic illness : d. No chronic illness Patient gives permission to discuss discharge plans with: (name, relationship and number) : JAYLA MOREIRA (SON) Patient and/or caregiver agree upon recommended discharge plan? : Yes Family / Caregiver's ability to cope with chronic illness: : a. Adequate (ability to meet patient's medical needs, ensures patient attends medical appts.) Patient's current cognitive status: : *Oriented to person, place, situation, time and present Family / Caregiver's ability to cope with chronic illness: : a. Adequate (ability to meet patient's medical needs, ensures patient attends medical appts.) Physical Status: : Independent with ADL's Does the patient have the ability to pay for or attain post discharge needs / services? : Yes Functional screen assessment: : Can meet basic needs but may require referral for resources Living Arrangements: : Home with others Equipment needed for post hospitalization: : None Is there a likelihood that the patient will require additional services to return to the preadmission environment? : No Living arrangements comments: : LIVES WITH DAUGHTER Baseline cognitive status: : *Oriented to person, place, situation, time and present Results of this evaluation have been discussed with: : Patient Patient with capacity for self-care or can be cared for in same environment as prior to hospitalization? : Yes Physical environment modification needed / anticipated for discharge: : No Medication Management: : Patient states can afford medications Medication Management: : Patient states can read and understand medication labels Medication Management: : Patient states they do have transportation to picker feeder medications Planned post hospital services available for patient? : Yes Pharmacy name(s): : [facility] Planned post hospital services covered by insurance plan? : Yes Does Patient have transportation to get home and to follow-up medical appointments when discharged from the hospital? : Yes Would patient like to participate in any Care Coordination programs (if applicable): : Not applicable Does the patient have electricity at home? : Yes Does the patient have running water in their house? : Yes Equipment in use: : None Mental health screen: : No mental health history Psychosocial status: : Independent adult (65+) Abuse/Neglect: : None Resources / Services in place: : None DCP Re-evaluation QUESTION: ANSWER Would patient like to participate in any Care Coordination programs (if applicable): : Not applicable PATIENT: THAIS MOREIRA ENCOUNTER: [id number] MEDICAL RECORD#: [id number] ADMISSION DATE: 11/10/2020 DISCHARGE DATE: 11/16/2020 ATTENDING MD: NOBLE LOZADA : 1951 AGE: 70 MARITAL STATUS: D DC PLAN ID: [id number] FACILITY: [facility] PRINTED ON: 11/16/20 19:36 CT All edits/amendments must be made on the electronic document DICTATION DATE: 11/16/201935 AIRPLANE TESTER: MIRANDA 11/16/201935 RPT#: [id number] DC DATE:11/16/20 STATUS: DIS IN [facility] [address] [facility] [place] [address] END OF REPORT
== END 2020-11-16 14:20 | disposition home or self-care (01) | DRG 871 ==
LOC: D.ER 09:21 → D.M2 11:18 → D.ICU 11-11 11:32 → D.M2 11-12 22:09
PROVIDERS: Anesthesiology; Family Medicine; Internal Medicine; Internal Medicine Pulmonary Disease; Surgery; ADMIT Emergency Medicine; ATTEND Emergency Medicine
PROC: 06H033Z Insertion of Infusion Device into Inferior Vena Cava, Percutaneous Approach (ICD-10-PCS; 2020-11-11)
PROC: B5191ZA Fluoroscopy of Inferior Vena Cava using Low Osmolar Contrast, Guidance (ICD-10-PCS; 2020-11-11)
PROC: 0JH63XZ Insertion of Tunneled Vascular Access Device into Chest Subcutaneous Tissue and Fascia, Percutaneous Approach (ICD-10-PCS; principal; 2020-11-11 08:00)
DX: A41.9 Sepsis, unspecified organism (principal); J96.21 Acute and chronic respiratory failure with hypoxia; N18.6 End stage renal disease; J18.9 Pneumonia, unspecified organism; I50.31 Acute diastolic (congestive) heart failure; I12.0 Hypertensive chronic kidney disease with stage 5 chronic kidney disease or end stage renal disease; J44.1 Chronic obstructive pulmonary disease with (acute) exacerbation; J44.0 Chronic obstructive pulmonary disease with (acute) lower respiratory infection; N17.9 Acute kidney failure, unspecified; I13.2 Hypertensive heart and chronic kidney disease with heart failure and with stage 5 chronic kidney disease, or end stage renal disease; E87.5 Hyperkalemia; Z99.2 Dependence on renal dialysis; D63.1 Anemia in chronic kidney disease; Z87.891 Personal history of nicotine dependence

== ENCOUNTER 2020-11-17 09:24 | Emergency (ER) | payer MEDICARE, MEDICAID ==
[~2020-11-17] VITALS: Ht 167.6 cm; Wt 46.8 kg
[2020-11-17 09:30] VITALS: BP 192/71; Ht 167.6 cm; Wt 46.8 kg
== END 2020-11-17 19:38 | disposition home or self-care (01) ==
LOC: D.ER 09:24
DX: R58 Hemorrhage, not elsewhere classified (principal); I10 Essential (primary) hypertension; J44.9 Chronic obstructive pulmonary disease, unspecified

== ENCOUNTER 2020-11-28 05:23 | Inpatient (IN) | payer MEDICARE, MEDICAID ==
[2020-11-28] VITALS (7 sets, daily range): BP systolic 115–136; BP diastolic 59–73; BMI 16.2
[~2020-11-28] VITALS: Ht 167.6 cm; Wt 45.4 kg
[2020-11-28 06:15] LABS: BASOPHILS 0.1 % (0-2); EOSINOPHILS 0 % (0-7); HEMATOCRIT 24.1 % (36.0-48.0); HEMOGLOBIN 7.8 g/dL (12-16); MCH 27.8 pg (26.0-34.0); MCHC 32.4 g/dL (31.0-37.0); MCV 85.9 fL (80.0-100.0); MEAN PLATELET VOLUME 7.5 fL (7.4-10.4); MONOCYTES 1.2 % (2-11); NEUTROPHILS 96.7 % (40-80); RBC 2.81 10x6/uL (4.00-5.40); RDW 16.8 % (11.5-14.5); WBC 10.8 10x3/uL (4.8-10.8)
[2020-11-28 06:18] LABS: PLATELET COUNT 122 10x3/uL (130-400)
[2020-11-28 06:41] LABS: ALBUMIN 2.5 g/dL (3.4-5.0); ANION GAP 14.8 mmol/L (8-16); BILIRUBIN - TOTAL 0.2 mg/dL (0.2-1.3); CALCIUM 7.5 mg/dL (8.5-10.1); CARBON DIOXIDE 27.7 mmol/L (21.0-32.0); CREATININE - SERUM 3.7 mg/dL (0.6-1.3); MAGNESIUM - SERUM 1.6 mg/dL (1.8-2.4); POTASSIUM - SERUM 3.5 mmol/L (3.5-5.1); PROTEIN - SERUM 6.1 g/dL (6.4-8.2); THYROID STIMULATING HORMONE 1.62 uIU/mL (0.36-3.74)
[2020-11-28 06:45] LABS: TROPONIN-I 0.394 ng/mL (0.000-0.060)
--- NOTE | 2020-11-28 07:00 | NUR ---
RECEIVED BEDSIDE REPORT AND ASSUMED CARE. PATIENT ALERT AND ORIENTED, SITTING UP IN BED, ON VENTI-MASK AT 8 LPM O2 WITH SPO2 100%, IV 20 GA TO LEFT WRIST, NSL, AV FISUTLA NOTED TO LEFT AC WITH POSITIVE THRILL AND BRUIT. HEMOSPLIT NOTED TO RIGHT GROIN, PATIENT UNABLE TO RECALL WHEN IT WAS PLACED. SCD'S PLACED AND BLUE SOCKS. BBS - CLEAR AND EQUAL, DIMINISHED IN THE BASES. CM - SR RATE OF 98. HEAD TO TOE ASSESSMENT COMPLETED.
--- NOTE | 2020-11-28 07:49 | NUR ---
DR. PEDRO NOTIFIED OF CONSULT AND OF D DIMER AND LACTIC ACID RESULTS.
--- NOTE | 2020-11-28 08:45 | NUR ---
RAMESH SHAH APRN NOTIFIED OF CARDIOLOGY CONSULT FOR PATIENT.
--- NOTE | 2020-11-28 08:49 | NUR ---
RAMESH SHAH AT ROOM UPDATED AND EXAMINES PATIENT.
--- NOTE | 2020-11-28 09:16 | NUR ---
DR. PEDRO AT ROOM UPDATED AND EXAMINES PATIENT. OKAY TO TRANSFER PATIENT TO FLOOR FROM HIS STANDPOINT. SPO2 100% ON 5 LPM O2, O2 DECREAED TO 3 LPM. WEARS O2 PRN AT NIGHT 2-3 LPM.
--- NOTE | 2020-11-28 09:24 | NUR ---
12 LEAD ECG COMPLETED.
[2020-11-28 09:30] LABS: % SATURATION 12 % (15-55); IRON 29 ug/dl (35-150); TOTAL IRON BIND CAPACITY 224 ug/dl (260-445); UNSAT IRON BIND CAPACITY 195 ug/dl (150-375)
--- NOTE | 2020-11-28 10:21 | NUR ---
DR. ARMSTRONG AT ROOM UPDATED AND EXAMINES PATIENT. OK TO TRANSFER TO FLOOR.
--- NOTE | 2020-11-28 10:49 | NUR ---
HANDOFF REPORT GIVEN TO CARLA HARDWICK.
--- NOTE | 2020-11-28 13:31 | NUR ---
BARBER TO ROOM PATIENT'S DAUGHTER AT BEDSIDE REQUEST THAT WE MKE MIAN WHEN THE PATIENT DIALYZES THAT [facility] OR [facility] KNOWS TO RUN HER MOTHER AT 300 AND NOT 400 FLOWRATE BECAUSE BP BOTTOMS OUT. 1340 PC TO RANDAL WITH RENAL TO DISCUSS DAUGHTERS CONCERN ABOUT FLOWRATE AND BP SHE STATED SHE WOULD NOTIFY THE DIALYSIS SUITE
[2020-11-29 01:09] VITALS: BP 118/56
--- NOTE | 2020-11-29 03:02 | NUR ---
I have reviewed this patient and I concur with the Shift Assessment completed by the Licensed Practical Nurse today this shift.
[2020-11-29 04:18] VITALS: BP 102/53
[2020-11-29 08:34] VITALS: BP 122/57
[2020-11-29 10:12] LABS: HEPATITIS C ANTIBODY <0.1 S/CO RAT (0.0-0.9)
--- NOTE | 2020-11-29 11:16 | NUR ---
PATIENT AAOX4 RESP EVEN AND NON LABORED, NO S/S OF DISTRESS, MEDICATIONS ADMINISTERED WITH NO COMPLICATIONS, RIGHT GROIN HEMOSPLIT WNL, DRESSING DRY AND INTACT, NO FURTHER NEEDS AT THIS TIME, ALIA VICTOR
[2020-11-29 11:49] VITALS: BP 133/52
[2020-11-29 12:41] VITALS: Ht 167.6 cm; Wt 45.4 kg
--- NOTE | 2020-11-29 13:31 | NUR ---
I have reviewed this patient and I concur with the Shift Assessment completed by the Licensed Practical Nurse today this shift.
[2020-11-29 14:54] LABS: BASOPHILS 1.5 % (0-2); EOSINOPHILS 0.7 % (0-7); HEMATOCRIT 21.2 % (36.0-48.0); LYMPHOCYTES 17.1 % (15-50); MCH 27.9 pg (26.0-34.0); MCHC 32.9 g/dL (31.0-37.0); MEAN PLATELET VOLUME 8.2 fL (7.4-10.4); MONOCYTES 4.9 % (2-11); NEUTROPHILS 75.8 % (40-80); PLATELET COUNT 137 10x3/uL (130-400); RBC 2.49 10x6/uL (4.00-5.40); RDW 16.5 % (11.5-14.5)
[2020-11-29 15:23] LABS: ALBUMIN 2.5 g/dL (3.4-5.0); ALKALINE PHOSPHATASE 66 U/L (30-120); ALT (SGPT) 20 U/L (10-68); BILIRUBIN - TOTAL 0.33 mg/dL (0.2-1.3); CALCIUM 7.8 mg/dL (8.5-10.1); CARBON DIOXIDE 29.6 mmol/L (21.0-32.0); CHLORIDE - SERUM 104 mmol/L (98-107); CREATINE KINASE 49 UL (21-215); CREATININE - SERUM 4.4 mg/dL (0.6-1.3); PROTEIN - SERUM 5.7 g/dL (6.4-8.2); SODIUM 143 mmol/L (136-145); UREA NITROGEN 40 mg/dL (7-18); eGFR NON AFRICAN AMERICAN 10 mL/min (90-120)
[2020-11-29 15:26] LABS: CALC OSMOLALITY 293 mosm/kg (275-300); GLUCOSE 83 mg/dL (74-106); POTASSIUM - SERUM 4.9 mmol/L (3.5-5.1); PRO BNP 74139 pg/mL (0-125); TROPONIN-I 0.416 ng/mL (0.000-0.060)
[2020-11-29 16:35] LABS: WBC 7.6 10x3/uL (4.8-10.8)
== END 2020-11-29 16:40 | disposition home or self-care (01) | DRG 291 ==
LOC: D.ER 05:23 → D.ICU 05:57 → D.M2 20:27
PROVIDERS: Emergency Medicine; Family Medicine; Internal Medicine Nephrology; ADMIT Family Medicine; ATTEND Family Medicine
DX: I13.0 Hypertensive heart and chronic kidney disease with heart failure and stage 1 through stage 4 chronic kidney disease, or unspecified chronic kidney disease (principal); I50.23 Acute on chronic systolic (congestive) heart failure; J96.01 Acute respiratory failure with hypoxia; N18.6 End stage renal disease; J18.9 Pneumonia, unspecified organism; D61.818 Other pancytopenia; E87.2 Acidosis; E09.22 Drug or chemical induced diabetes mellitus with diabetic chronic kidney disease; J44.9 Chronic obstructive pulmonary disease, unspecified; Z99.2 Dependence on renal dialysis; D63.1 Anemia in chronic kidney disease; F17.200 Nicotine dependence, unspecified, uncomplicated